=== PATIENT | male | born 1990 ===

== ENCOUNTER 2019-06-04 16:52 | Emergency (ER) | payer SELFPAY ==
[~2019-06-04] VITALS: Ht 180.3 cm; Wt 136.1 kg
[2019-06-04 17:10] VITALS: BP 159/88
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
== END 2019-06-04 18:24 | disposition home or self-care (01) ==
LOC: ER 16:52
DX: R20.2 Paresthesia of skin (principal); J45.909 Unspecified asthma, uncomplicated; Z88.0 Allergy status to penicillin
CPT/HCPCS: 99281